=== PATIENT | female | born 1985 | race American Indian/Alaskan Native ===

== ENCOUNTER 2019-02-04 12:53 | Emergency (ER) | payer BC ==
--- NOTE | 2019-02-04 13:12 | Emergency Department Report ---
Blank Doc - Documentation Documentation: This is a 33-year-old female that presents with shortness of breathe and chest pain. Sat at 93-94% in triage. This initial assessment/diagnostic orders/clinical plan/treatment(s) is/are subject to change based on patient's health status, clinical progression and re-assessment by fellow clinical providers in the ED. Further treatment and workup at subsequent clinical providers discretion. Patient/guardians urged not to elope from the ED as their condition may be serious if not clinically assessed and managed. Initial orders include: 1- Patient sent to MAIN for further evaluation and treatment 2- Breathing treatment/steroids 3- Labs 4- EKG 5- CXR
[2019-02-04] MEDS ORDERED: ATROVENT IH ONE (13:13)
[2019-02-04] MEDS ORDERED: DECADRON IV ONE (13:13)
[2019-02-04] MEDS ORDERED: PROVENTIL IH ONE (13:13)
--- NOTE | 2019-02-04 13:44 | Emergency Department Report ---
ED General Adult HPI - General Chief complaint: Chest Pain Stated complaint: CHEST PAIN/LIGHT HEADED Time Seen by Provider: 02/04/19 13:10 Source: patient Mode of arrival: Ambulatory Limitations: No Limitations - History of Present Illness Initial comments: 33-year-old female with cough which is largely nonproductive for the last week. She complains of intermittent shortness of breath. She has obvious wheezing. She states that she has not been treated for asthma in the past. She denies risk factors for pulmonary embolism such as recent travel. He said no leg pain or swelling. She's had some occasional chest discomfort which is associated with her wheezing and transient in nature. She did not relate any pleuritic pain to me. She denies hemoptysis or even any productive sputum. She denies fever or chills. -: week(s) Location: chest Radiation: non-radiation Quality: aching Consistency: intermittent (transient and intermittent) Improves with: none Worsens with: none Associated Symptoms: cough, shortness of breath Treatments Prior to Arrival: none - Related Data Previous Rx's Medication Instructions Recorded Last Taken Type Amoxicillin/K Clav Tab [Augmentin 1 tab PO Q12HR #14 tab 09/22/18 Unknown Rx 875 mg] Ibuprofen [Motrin] 800 mg PO Q8HR #30 tablet 09/22/18 Unknown Rx Albuterol Sulfate [Ventolin HFA] 2 puff IH Q4H PRN #1 hfa.aer.ad 02/04/19 U nknown Rx Azithromycin [Zithromax] 250 mg PO DAILY #6 tablet 02/04/19 Unknown Rx predniSONE [Deltasone] 60 mg PO QDAY #15 tab 02/04/19 Unknown Rx Allergies Allergy/AdvReac Type Severity Reaction Status Date / Time No Known Allergies Allergy Verified 02/04/19 12:54 ED Review of Systems ROS: Stated complaint: CHEST PAIN/LIGHT HEADED Other details as noted in HPI Constitutional: denies: chills, fever Eyes: denies: eye pain, eye discharge, vision change ENT: denies: ear pain, throat pain Respiratory: cough, shortness of breath, wheezing Cardiovascular: chest pain. denies: palpitations Endocrine: no symptoms reported Gastrointestinal: denies: abdominal pain, nausea, diarrhea Genitourinary: denies: urgency, dysuria, discharge Musculoskeletal: as per HPI. denies: back pain, joint swelling, arthralgia, myalgia Skin: denies: rash, lesions Neurological: denies: headache, weakness, paresthesias Psychiatric: denies: anxiety, depression Hematological/Lymphatic: denies: easy bleeding, easy bruising ED Past Medical Hx - Past Medical History Previous Medical History?: No - Surgical History Past Surgical History?: No - Social History Smoking Status: Current Every Day Smoker Substance Use Type: None - Medications Home Medications: Home Medications Medication Instructions Recorded Confirmed Last Taken Type Amoxicillin/K Clav Tab [Augmentin 1 tab PO Q12HR #14 tab 09/22/18 Unknown Rx 875 mg] Ibuprofen [Motrin] 800 mg PO Q8HR #30 tablet 09/22/18 Unknown Rx Albuterol Sulfate [Ventolin HFA] 2 puff IH Q4H PRN #1 hfa.aer.ad 02/04/19 Unknown Rx Azithromycin [Zithromax] 250 mg PO DAILY #6 tablet 02/04/19 Unknown Rx predniSONE [Deltasone] 60 mg PO QDAY #15 tab 02/04/19 Unknown Rx ED Physical Exam - General Limitations: No Limitations General appearance: alert, in no apparent distress - Head Head exam: Present: atraumatic, normocephalic - Eye Eye exam: Present: normal appearance. Absent: scleral icterus - ENT ENT exam: Present: mucous membranes moist - Neck Neck exam: Present: normal inspection. Absent: tenderness, meningismus - Respiratory Respiratory exam: Present: wheezes. Absent: normal lung sounds bilaterally, respiratory distress - Cardiovascular Cardiovascular Exam: Present: regular rate, normal rhythm. Absent: systolic murmur, diastolic murmur, rubs, gallop - GI/Abdominal GI/Abdominal exam: Present: soft, normal bowel sounds. Absent: distended, tenderness, guarding, rebound, rigid - Extremities Exam Extremities exam: Present: normal inspection - Back Exam Back exam: Present: normal inspection - Neurological Exam Neurological exam: Present: alert, oriented X3, CN II-XII intact. Absent: motor sensory deficit - Psychiatric Psychiatric exam: Present: normal affect, normal mood - Skin Skin exam: Present: warm, dry, intact, normal color. Absent: rash ED Course Vital Signs 02/04/19 02/04/19 02/04/19 13:11 13:55 14:23 Temperature 97.9 F Pulse Rate 115 H Pulse Rate [ 97 H Anterior Bilateral Throughout] Respiratory 22 24 Rate Respiratory 20 Rate [Anterior Bilateral Throughout] Blood Pressure 119/61 O2 Sat by Pulse 95 Oximetry - Reevaluation(s) Reevaluation #1: Patient denies chest pain independent from her wheezing. She didn't experience any chest pain while here. I do not think she qualifies for CT imaging with the d-dimer measurement found. Her wheezing has improved and her symptoms have essentially resolved. She has minimal residual wheezing but does not desire another treatment. She states ready for discharge. 02/04/19 15:19 ED Medical Decision Making - Lab Data Result diagrams: 02/04/19 13:53 02/04/19 13:41 Laboratory Results - last 24 hr 02/04/19 02/04/19 02/04/19 13:41 13:41 13:53 WBC 5.8 RBC 4.54 Hgb 14.7 H Hct 42.8 MCV 94 MCH 32 MCHC 34 RDW 13.0 L Plt Count 251 Lymph % (Auto) 42.1 H Todd % (Auto) 6.1 Eos % (Auto) 2.7 Baso % (Auto) 0.8 Lymph # 2.5 Todd # 0.4 Eos # 0.2 Baso # 0.0 Seg Neutrophils % 48.3 Seg Neutrophils # 2.8 PT 13.5 INR 0.97 APTT 28.8 D-Dimer 247.77 H Sodium 140 Potassium 3.9 Chloride 104.9 Carbon Dioxide 25 Anion Gap 14 BUN 8 Creatinine 0.8 Estimated GFR > 60 BUN/Creatinine Ratio 10 Glucose 93 Calcium 9.0 Total Bilirubin 0.30 AST 15 ALT 17 Alkaline Phosphatase 60 Troponin T < 0.010 Total Protein 6.7 Albumin 3.8 L Albumin/Globulin Ratio 1.3 02/04/19 13:53 WBC RBC Hgb Hct MCV MCH MCHC RDW Plt Count Lymph % (Auto) Todd % (Auto) Eos % (Auto) Baso % (Auto) Lymph # Todd # Eos # Baso # Seg Neutrophils % Seg Neutrophils # PT INR APTT D-Dimer 245.44 H Sodium Potassium Chloride Carbon Dioxide Anion Gap BUN Creatinine Estimated GFR BUN/Creatinine Ratio Glucose Calcium Total Bilirubin AST ALT Alkaline Phosphatase Troponin T Total Protein Albumin Albumin/Globulin Ratio - EKG Data -: EKG Interpreted by Mo EKG shows normal: sinus rhythm, axis, intervals, QRS complexes, ST-T waves Rate: tachycardia - EKG Data Interpretation: nonspecific ST-T wave magdalene - Radiology Data Radiology results: report reviewed Chest x-ray no acute process Critical care attestation.: If time is entered above; I have spent that time in minutes in the direct care of this critically ill patient, excluding procedure time. ED Disposition Clinical Impression: Reactive airways dysfunction syndrome Acute bronchitis Qualifiers: Bronchitis organism: unspecified organism Qualified Code(s): J20.9 - Acute bronchitis, unspecified Disposition: TO HOME OR SELFCARE Is pt being admited?: No Does the pt Need Aspirin: No Condition: Stable Instructions: Bronchospasm (ED), Acute Bronchitis (ED) Additional Instructions: Return to the emergency department for any acute change or worsening symptoms. Follow-up with primary care provider. Rx has directed. Prescriptions: predniSONE [Deltasone] 60 mg PO QDAY #15 tab Albuterol Sulfate [Ventolin HFA] 2 puff IH Q4H PRN #1 hfa.aer.ad PRN Reason: Shortness Of Breath Azithromycin [Zithromax] 250 mg PO DAILY #6 tablet Referrals: SANYA MORALES MD [Primary Care Provider] - 2-3 Days Time of Disposition: 15:21
[2019-02-04] MEDS ORDERED: MAGNESIUM SULFATE 2GM/50ML 2 GM/50 ML BAG IV ONE (13:49)
[2019-02-04] MEDS ORDERED: NACL 0.9% 1000 ML 1,000 ML IV ONE (13:50)
[2019-02-04 14:02] LABS: Basophils % (Auto) 0.8 % (0.0-1.8); Eosinophils # (Auto) 0.2 K/mm3 (0.0-0.4); Eosinophils % (Auto) 2.7 % (0.0-4.3); Hematocrit 42.8 % (30.3-42.9); Hemoglobin 14.7 gm/dl (10.1-14.3); Lymphocytes # (Auto) 2.5 K/mm3 (1.2-5.4); Lymphocytes % (Auto) 42.1 % (13.4-35.0); Mean Corpuscular HGB Conc 34 % (30-34); Mean Corpuscular Volume 94 fl (79-97); Monocytes # (Auto) 0.4 K/mm3 (0.0-0.8); Monocytes % (Auto) 6.1 % (0.0-7.3); Platelet Count 251 K/mm3 (140-440); Red Blood Count 4.54 M/mm3 (3.65-5.03)
[2019-02-04 14:04] LABS: INR 0.97 (0.87-1.13)
[2019-02-04 14:05] LABS: Partial Thromboplastin Time 28.8 Sec. (24.2-36.6)
[2019-02-04 14:10] LABS: Alanine Aminotransferase 17 units/L (7-56); Albumin 3.8 g/dL (3.9-5); BUN/Creatinine Ratio 10; Blood Urea Nitrogen 8 mg/dL (7-17); Hemolysis Index 14
--- NOTE | 2019-02-04 14:17 | XRay Report ---
EXAM: XR CHEST 1V AP HISTORY: JUANCARLOS TECHNIQUE: PA and lateral chest x-ray dated 02/04/2019 at 1:50 PM. COMPARISON: None available. FINDINGS: The heart size and mediastinum are within normal limits. The lung lincoln and costophrenic angles are clear. There is no acute parenchymal infiltrate, pleural effusion, or pneumothorax seen. The visua lized bony structures are within normal limits. IMPRESSION: 1. No evidence for acute cardiopulmonary disease seen. This document is electronically signed by Kathie Connell MD., February 04 2019 02:15:18 PM ET
[2019-02-04] MEDS ORDERED: DUONEB *Not for PRN Use IH ONE (15:35)
[2019-02-04 16:46] VITALS: BP 114/56
== END 2019-02-04 16:44 | disposition home or self-care (01) ==
LOC: ED 12:53
DX: J20.9 Acute bronchitis, unspecified (principal); J68.3 Other acute and subacute respiratory conditions due to chemicals, gases, fumes and vapors; F17.200 Nicotine dependence, unspecified, uncomplicated
CPT/HCPCS: 36415; 71045; 80053; 84484; 85025; 85379; 85610; 85730; 93005; 93010; 94644; 96365; 96366; 96375; 99284; J1100; J3475; J7030

== ENCOUNTER 2019-02-04 23:27 | Inpatient (IN) | payer BC ==
[2019-02-04] MEDS ORDERED: LASIX IV ONE (23:30)
[2019-02-04] MEDS ORDERED: SOLU-Medrol IV ONE (23:30)
[2019-02-04] MEDS ORDERED: LASIX ONE (23:31)
[2019-02-04] MEDS ORDERED: SOLU-Medrol ONE (23:31)
[2019-02-04] MEDS ORDERED: ATROVENT IH ONE (23:32)
[2019-02-04] MEDS ORDERED: PROVENTIL IH ONE (23:32)
--- NOTE | 2019-02-04 23:59 | Emergency Department Report ---
HPI - General Chief Complaint: Dyspnea/Respdistress Time Seen by Provider: 02/04/19 23:40 - HPI HPI: 33 -[place] female presents to the ED with shortness of breath, wheezing, that started 1 hour prior to arrival. Patient rates symptoms as severe in severity. Patient was seen earlier in the ED and was diagnosed with bronchitis, she states she was walking in to [facility] to get her prescriptions and suddenly felt out of breath, very fatigued, chest discomfort, and like she was going to pass out. She drove herself to ED, parked in front of the ambulance entrance, and proceeded to the ED where she was met by nurses, and promptly placed in to a room. She appeared to be in respiratory distress, heart rate in the 140s, sats in the low 90s, and the wheezing in all lobes. Respiratory was called, patient was placed in the DuoNeb 10 mg albuterol and 1 mg Atrovent, she was given Solu-Medrol 125 IV, and placed on 2 L of oxygen. ED Past Medical Hx - Social History Smoking Status: Current Every Day Smoker Substance Use Type: None - Medications Home Medications: Home Medications Medication Instructions Recorded Confirmed Last Taken Type Amoxicillin/K Clav Tab [Augmentin 1 tab PO Q12HR #14 tab 09/22/18 02/05/19 Unknown Rx 875 mg] Ibuprofen [Motrin] 800 mg PO Q8HR #30 tablet 09/22/18 02/05/19 Unknown Rx Albuterol Sulfate [Ventolin HFA] 2 puff IH Q4H PRN #1 hfa.aer.ad 02/04/19 02/05/19 Unknown Rx Azithromycin [Zithromax] 250 mg PO DAILY #6 tablet 02/04/19 02/05/19 Unknown Rx predniSONE [Deltasone] 60 mg PO QDAY #15 tab 02/04/19 02/05/19 Unknown Rx ED Review of Systems ROS: Stated complaint: JUANCARLOS Other details as noted in HPI ED Medical Decision Making - Lab Data Result diagrams: 02/05/19 00:48 02/05/19 00:48 - Medical Decision Making 33-year-old female presents to the ED with respiratory distress Treated with DuoNeb with 10 mg of albuterol and 1 mg of Atrovent, 2 mg IV of magnesium, CT angiogram of the chest showed right lower lobe PE, patient treated with Lovenox 100 mg subcutaneous 1. Patient To be admitted to ICU. - Differential Diagnosis ACS, PE, pneumonia, bronchitis Critical Care Time: Yes (one hour) Critical care time in (mins) excluding proc time.: 60 Critical care attestation.: If time is entered above; I have spent that time in minutes in the direct care of this critically ill patient, excluding procedure time. ED Disposition Clinical Impression: Pulmonary embolism Qualifiers: Pulmonary embolism type: other Chronicity: acute Acute cor pulmonale presence: without acute cor pulmonale Qualified Code(s): I26.99 - Other pulmonary embolism without acute cor pulmonale Disposition: 09 OP ADMIT IP TO THIS HOSP Is pt being admited?: Yes Does the pt Need Aspirin: Yes Condition: Critical
[2019-02-05] MEDS ORDERED: MAGNESIUM SULFATE 2GM/50ML 2 GM/50 ML BAG IV ONE ×2 (00:22→00:26)
[2019-02-05] MEDS ORDERED: ZOFRAN IV ONE (00:23)
[2019-02-05] MEDS ORDERED: MORPHINE IV ONE ×2 (00:23→02:29)
[2019-02-05] MEDS ORDERED: PROVENTIL IH ONE (01:00)
[2019-02-05] MEDS ORDERED: ATROVENT IH ONE (01:00)
[2019-02-05 01:14] LABS: BUN/Creatinine Ratio 11; Blood Urea Nitrogen 8 mg/dL (7-17); Calcium 8.9 mg/dL (8.4-10.2); Hemolysis Index 13
[2019-02-05 01:15] LABS: Basophils % (Auto) 0.2 % (0.0-1.8); Hemoglobin 14.8 gm/dl (10.1-14.3); Lymphocytes # (Auto) 1.1 K/mm3 (1.2-5.4); Lymphocytes % (Auto) 9.9 % (13.4-35.0); Mean Corpuscular HGB Conc 34 % (30-34); Mean Corpuscular Volume 95 fl (79-97); Monocytes # (Auto) 0.2 K/mm3 (0.0-0.8); Monocytes % (Auto) 1.8 % (0.0-7.3); Platelet Count 280 K/mm3 (140-440); Red Blood Count 4.54 M/mm3 (3.65-5.03); Red Cell Distribution Width 13.5 % (13.2-15.2)
[2019-02-05 02:38] LABS: Amorphous Crystals,Urine Few; Bacteria,Urine 1+ /HPF (Negative); Bilirubin,Urine NEG (Negative); Blood,Urine MOD (Negative); Color,Urine Colorless (Yellow); HCG Qualitative,Urine Negative (Negative); Mucus,Urine FEW /HPF; Protein,Urine <15 mg/dL mg/dL (Negative); Urobilinogen,Urine < 2.0 mg/dL (<2.0)
--- NOTE | 2019-02-05 04:15 | Cat Scan Report ---
PROCEDURE: CT ANGIO CHEST TECHNIQUE: HISTORY: chest pain,elev ddimer,sob FINDINGS: Contrast-enhanced CT angiography of the chest was performed following the intravenous admin istration of iodinated contrast. Sagittal and coronal MIP three-dimensional reformatted images were g enerated. These images demonstrate a pulmonary embolism in a medial branch of the right lower lobe pulmonary ar mayra, axial image 68, sagittal image 69, coronal image 68. No central embolism is seen. There is no a ortic dissection. There is no consolidative pulmonary infiltrate. There is no pleural or pericardial effusion. In the upper abdomen the adrenal glands are within normal limits. The visualized portion of the liver and spleen are unremarkable. IMPRESSION: Right lower lobe pulmonary embolism This document is electronically signed by Isidro Hearn MD., February 05 2019 04:12:48 AM ET
[2019-02-05] MEDS ORDERED: LOVENOX SUB-Q ONE ×2 (04:19→06:21)
[2019-02-05] MEDS ORDERED: ZOFRAN IV PRN (04:52)
[2019-02-05] MEDS ORDERED: TYLENOL PO PRN (04:52)
[2019-02-05] MEDS ORDERED: SODIUM CHLORIDE FLUSH SYRINGE 10 ML IV PRN (04:52)
--- NOTE | 2019-02-05 04:57 | History and Physical Report ---
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 She was seen out in the emergency room yesterday and was diagnosed with acute bronchitis. 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 She comes emergency room her evaluation, she was found to be in respiratory distress, wheezing, she will space on BiPAP, given steroids. She denies OCP use, recent surgery, she is usually sedentary for At least 2 hours at a time when she is driving the truck Review of systems Constitutional: no weight loss, chills, fever Ears, eyes, nose, mouth and throat: no nasal congestion, no nasal discharge, no sinus pressure, no vision change, no red eye. Neck: No neck pain or rigidity. Cardiovascular: no palpitations, chest pain Respiratory: + cough, shortness of breath Gastrointestinal: no hematochezia, abdominal pain Genitourinary : no frequency , no hematuria Musculoskeletal: no joint swelling or muscle ache Integumentary: no rash, no pruritis Neurological: no parathesias, no focal weakness Endocrine: no cold or heat intolerance, no polyuria or polydipsia Hematologic/Lymphatic: no easy bruising, no easy bleeding, no gland swelling Allergic/Immunologic: no urticaria, no angioedema. PAST MEDICAL HISTORY: None PAST SURGICAL HISTORY: Hernia repair SOCIAL HISTORY: Denies alcohol, drugs, smokes half pack a day FAMILY HISTORY: Hypertension Medications and Allergies Allergies Allergy/AdvReac Type Severity Reaction Status Date / Time No Known Allergies Allergy Verified 02/04/19 12:54 Home Medications Medication Instructions Recorded Confirmed Last Taken Type Amoxicillin/K Clav Tab [Augmentin 1 tab PO Q12HR #14 tab 09/22/18 02/05/19 Unknown Rx 875 mg] Ibuprofen [Motrin] 800 mg PO Q8HR #30 tablet 09/22/18 02/05/19 Unknown Rx Albuterol Sulfate [Ventolin HFA] 2 puff IH Q4H PRN #1 hfa.aer.ad 02/04/19 02/05/19 Unknown Rx Azithromycin [Zithromax] 250 mg PO DAILY #6 tablet 02/04/19 02/05/19 Unknown Rx predniSONE [Deltasone] 60 mg PO QDAY #15 tab 02/04/19 02/05/19 Unknown Rx Exam - Physical Exam Narrative exam: General Apperance: The patient lying in bed, breathing comfortable on BIPAP HEENT: Normocephalic, atraumatic. Pupils equally round and reactive to light, EOMI, no sclericterus or JVD or thyromegaly or nodule. , no carotid bruit, mucous membranes moist, no exudate or erythema Heart: S1-S2, regular is rhythm Lungs: Clear to auscultation bilaterally, breathing comfortable Abdomen: Positive bowel sounds, soft, nontender, nondistended, no organomegaly Extremities: No edema cyanosis clubbing Skin: no rash, nodule, warm and dry Neuro: cranial nerves 2-12 intact, speech is fluent, motor/sensory intact - Constitutional Vitals: Temp Pulse Resp BP Pulse Ox 114 H 22 113/54 100 02/05/19 02:25 02/05/19 02:25 02/05/19 02:00 02/05/19 02:12 Results - Labs CBC & Chem 7: 02/05/19 00:48 02/05/19 00:48 Labs: Abnormal lab results 02/05/19 02/05/19 Range/Units 00:48 00:48 Hgb 14.8 H (10.1-14.3) gm/dl Hct 43.0 H (30.3-42.9) % MCH 33 H (28-32) pg Lymph % (Auto) 9.9 L (13.4-35.0) % Lymph # 1.1 L (1.2-5.4) K/mm3 Seg Neutrophils % 88.1 H (40.0-70.0) % Seg Neutrophils # 9.5 H (1.8-7.7) K/mm3 Sodium 136 L (137-145) mmol/L Carbon Dioxide 18 L D (22-30) mmol/L Glucose 169 H (65-100) mg/dL - Imaging and Cardiology CT scan - chest: report reviewed Assessment and Plan Assessment Acute pulmonary emboli Acute bronchitis Plan Admit to medicine Start Lovenox, check Doppler lower extremity start Steroids, nebulized treatments DVT prophylaxis
[2019-02-05 04:58] LABS: INR 0.92 (0.87-1.13); Partial Thromboplastin Time 26.7 Sec. (24.2-36.6)
[2019-02-05] MEDS ORDERED: SOLU-Medrol IV SCH (06:00)
[2019-02-05] MEDS: LOVENOX SUB-Q SCH ×2 (06:15→18:42)
[2019-02-05] MEDS ORDERED: SOLU-Medrol ONE (06:22)
[2019-02-05] MEDS: MORPHINE IV PRN ×2 (09:19→18:42)
[2019-02-05] MEDS: SODIUM CHLORIDE FLUSH SYRINGE 10 ML IV SCH ×2 (09:20→22:08)
[2019-02-05] MEDS: ATROVENT IH SCH ×4 (09:51→21:55)
--- NOTE | 2019-02-05 10:35 | Consultation ---
History of Present Illness Consult date: 02/05/19 Requesting physician: EN SOSA Reason for consult: other (Acute Hypoxemic Respiratory Failure) History of present illness: PCCM CONSULT NOTE (Full note dictated # ) Please see dictated notes for full details Medications and Allergies Allergies Allergy/AdvReac Type Severity Reaction Status Date / Time No Known Allergies Allergy Verified 02/04/19 12:54 Home Medications Medication Instructions Recorded Confirmed Last Taken Type Amoxicillin/K Clav Tab [Augmentin 1 tab PO Q12HR #14 tab 09/22/18 02/05/19 Unknown Rx 875 mg] Ibuprofen [Motrin] 800 mg PO Q8HR #30 tablet 09/22/18 02/05/19 Unknown Rx Albuterol Sulfate [Ventolin HFA] 2 puff IH Q4H PRN #1 hfa.aer.ad 02/04/19 02/05/19 Unknown Rx Azithromycin [Zithromax] 250 mg PO DAILY #6 tablet 02/04/19 02/05/19 Unknown Rx predniSONE [Deltasone] 60 mg PO QDAY #15 tab 02/04/19 02/05/19 Unknown Rx Active Meds: Active Medications Acetaminophen (Tylenol) 650 mg PO Q4H PRN PRN Reason: Pain MILD(1-3)/Fever >100.5/ELIAS Enoxaparin Sodium (Lovenox) 90 mg 1 mg/kg (90 mg) SUB-Q Q12H [facility] Last Admin: 02/05/19 06:15 Dose: 90 mg Documented by: Ipratropium [place] (Atrovent) 0.5 mg IH Q4HRT [facility] Last Admin: 02/05/19 09:51 Dose: 0.5 mg Documented by: Methylprednisolone Sodium Succinate (Solu-Medrol) 80 mg IV Q6HR [facility] Morphine Sulfate (Morphine) 2 mg IV Q4H PRN PRN Reason: Pain, Moderate (4-6) Last Admin: 02/05/19 09:19 Dose: 2 mg Documented by: Ondansetron HCl (Zofran) 4 mg IV Q8H PRN PRN Reason: Nausea And Vomiting Sodium Chloride (Sodium Chloride Flush Syringe 10 Ml) 10 ml IV BID [facility] Last Admin: 02/05/19 09:20 Dose: 10 ml Documented by: Sodium Chloride (Sodium Chloride Flush Syringe 10 Ml) 10 ml IV PRN PRN PRN Reason: LINE FLUSH Physical Examination Vital signs: Vital Signs Pulse Pulse Ox 156 H 96 02/04/19 23:28 02/04/19 23:28 Results - Laboratory Findings CBC and BMP: 02/05/19 00:48 02/05/19 00:48 PT/INR, D-dimer PT 12.9 Sec. (12.2-14.9) 02/05/19 04:31 INR 0.92 (0.87-1.13) 02/05/19 04:31 Abnormal lab findings: Abnormal Labs 02/05/19 02/05/19 00:48 00:48 Hgb 14.8 H Hct 43.0 H MCH 33 H Lymph % (Auto) 9.9 L Lymph # 1.1 L Seg Neutrophils % 88.1 H Seg Neutrophils # 9.5 H Sodium 136 L Carbon Dioxide 18 L D Glucose 169 H
[2019-02-05] MEDS: SOLU-Medrol IV SCH ×3 (12:19→23:58)
--- NOTE | 2019-02-05 12:25 | Vascular Lab Report ---
PROCEDURE: VL VENOUS DUPLEX LE BILAT TECHNIQUE: Duplex Doppler imaging of the veins of the bilateral lower extremities was performed. HISTORY: DVT COMPARISONS: None. FINDINGS: The veins of the right lower extremity are patent, compressible, demonstrate normal waveforms and aug mentation. The veins of the left lower extremity are patent, compressible, demonstrate normal waveforms and augm entation. IMPRESSION: No evidence of deep venous fibrosis of the bilateral lower extremities. This document is electronically signed by Abby Bynum MD., February 05 2019 12:23:13 PM ET
--- NOTE | 2019-02-05 18:34 | Consultation ---
History of Present Illness Consult date: 02/05/19 Reason for consult: dyspnea, cough, pulmonary embolism History of present illness: PULMONARY AND CRITICAL CARE CONSULTATION DR. SOSA THANK YOU FOR ASKING US TO PARTICIPATE IN THE CARE OF THIS PATIENT. 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 She was seen out in the emergency room yesterday and was diagnosed with acute bronchitis. She went to [facility] to knot picker cloth her prednisone, she became increasing more short of breath, feel as if she was, pass out. She comes emergency room her evaluation, she was found to be in respiratory distress, wheezing, she is placed on BiPAP and given steroids. She denies OCP use, recent surgery, she is usually sedentary for At least 2 hours at a time when she is driving the truck.Patient denies any other medical problems except migraine headache. She smokes Half a pack a day x 10 years. Counselled to stop smoking.Denies alcohol or drug abuse. No known drug allergies. Not . No children. Do not use control pills. Patient has Angio CT of chest reported pulmonary emboli right Lower lobe. Patient started on S/C Lovenox with therapeutic dose. Patient resting on 2 litres O2. O2 saturation 98%. Past History Past Medical History: other (Migrain hedaches.) Medications and Allergies Allergies Allergy/AdvReac Type Severity Reaction Status Date / Time No Known Allergies Allergy Verified 02/04/19 12:54 Home Medications Medication Instructions Recorded Confirmed Last Taken Type Amoxicillin/K Clav Tab [Augmentin 1 tab PO Q12HR #14 tab 09/22/18 02/05/19 Unknown Rx 875 mg] Ibuprofen [Motrin] 800 mg PO Q8HR #30 tablet 09/22/18 02/05/19 Unknown Rx Albuterol Sulfate [Ventolin HFA] 2 puff IH Q4H PRN #1 hfa.[email or web address] 02/04/19 02/05/19 Unknown Rx Azithromycin [Zithromax] 250 mg PO DAILY #6 tablet 02/04/19 02/05/19 Unknown Rx predniSONE [Deltasone] 60 mg PO QDAY #15 tab 02/04/19 02/05/19 Unknown Rx Active Meds: Active Medications Acetaminophen (Tylenol) 650 mg PO Q4H PRN PRN Reason: Pain MILD(1-3)/Fever >100.5/ELIAS Last Admin: 02/05/19 12:20 Dose: 650 mg Documented by: Enoxaparin Sodium (Lovenox) 90 mg 1 mg/kg (90 mg) SUB-Q Q12H [facility] Last Admin: 02/05/19 06:15 Dose: 90 mg Documented by: Ipratropium [place] (Atrovent) 0.5 mg IH Q4HRT [facility] Last Admin: 02/05/19 16:39 Dose: 0.5 mg Documented by: Methylprednisolone Sodium Succinate (Solu-Medrol) 80 mg IV Q6HR [facility] Last Admin: 02/05/19 12:19 Dose: 80 mg Documented by: Morphine Sulfate (Morphine) 2 mg IV Q4H PRN PRN Reason: Pain, Moderate (4-6) Last Admin: 02/05/19 09:19 Dose: 2 mg Documented by: Ondansetron HCl (Zofran) 4 mg IV Q8H PRN PRN Reason: Nausea And Vomiting Sodium Chloride (Sodium Chloride Flush Syringe 10 Ml) 10 ml IV BID [facility] Last Admin: 02/05/19 09:20 Dose: 10 ml Documented by: Sodium Chloride (Sodium Chloride Flush Syringe 10 Ml) 10 ml IV PRN PRN PRN Reason: LINE FLUSH Review of Systems All systems: negative Physical Examination Vital signs: Vital Signs Pulse Pulse Ox 156 H 96 02/04/19 23:28 02/04/19 23:28 General appearance: no acute distress, asleep Eyes: non-icteric ENT: oropharynx moist Neck: supple, no JVD Ascultation: Bilateral: diminished breath sounds Cardiovascular: regular rate and rhythm Gastrointestinal: normoactive bowel sounds, soft, non-tender Integumentary: normal Extremities: no cyanosis, no edema Musculoskeletal: no deformities non-focal exam, pupils equal and round, CN II-XII normal depressed Results - Laboratory Findings CBC and BMP: 02/05/19 00:48 02/05/19 00:48 PT/INR, D-dimer PT 12.9 Sec. 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 She was seen out in the emergency room yesterday and was diagnosed with acute bronchitis. She went to [facility] to knot picker cloth her prednisone, she became increasing mo re short of breath, feel as if she was, pass out. She comes emergency room her evaluation, she was found to be in respiratory distress, wheezing, she is placed on BiPAP and given steroids. She denies OCP use, recent surgery, she is usually sedentary for At least 2 hours at a time when she is driving the truck.Patient denies any other medical problems except migraine headache. She smokes Half a pack a day x 10 years. Counselled to stop smoking.Denies alcohol or drug abuse. No known drug allergies. Not . No children. Do not use control pills. Patient has Angio CT of chest reported pulmonary emboli right Lower lobe. Patient started on S/C Lovenox with therapeutic dose. Patient resting on 2 litres O2. O2 saturation 98%. - Patient Problems (1) Pulmonary embolism Current Visit: Yes Status: Acute Qualifiers: Pulmonary embolism type: other Chronicity: acute Acute cor pulmonale presence: without acute cor pulmonale Qualified Code(s): I26.99 - Other pulmonary embolism without acute cor pulmonale Plan to address problem: Patient started on S/C Lovenox. (2) Reactive airways dysfunction syndrome Current Visit: No Status: Acute Plan to address problem: Atrovent aerosol treatments q 6 hours. Continue I/V solumedrol.
--- NOTE | 2019-02-05 19:09 | Event Note ---
Date: 02/05/19 Patient seen and examined, improving clinically, continue current management as outlined.
[2019-02-06] MEDS: ATROVENT IH SCH ×6 (00:44→21:16)
[2019-02-06] MEDS: LOVENOX SUB-Q SCH ×2 (06:04→17:07)
[2019-02-06] MEDS: SOLU-Medrol IV SCH ×3 (06:05→17:06)
[2019-02-06] MEDS: MORPHINE IV PRN (06:37)
[2019-02-06 07:03] LABS: Basophils % (Auto) 0.1 % (0.0-1.8); Hematocrit 43.1 % (30.3-42.9); Hemoglobin 14.2 gm/dl (10.1-14.3); Lymphocytes # (Auto) 1.6 K/mm3 (1.2-5.4); Lymphocytes % (Auto) 9.9 % (13.4-35.0); Mean Corpuscular HGB Conc 33 % (30-34); Mean Corpuscular Volume 95 fl (79-97); Monocytes # (Auto) 0.4 K/mm3 (0.0-0.8); Monocytes % (Auto) 2.7 % (0.0-7.3); Platelet Count 263 K/mm3 (140-440); Red Blood Count 4.55 M/mm3 (3.65-5.03); Red Cell Distribution Width 13.6 % (13.2-15.2)
[2019-02-06 07:25] LABS: BUN/Creatinine Ratio 20; Blood Urea Nitrogen 14 mg/dL (7-17); Calcium 8.8 mg/dL (8.4-10.2); Hemolysis Index 6
--- NOTE | 2019-02-06 08:25 | Progress Note ---
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 She was seen out in the emergency room yesterday and was diagnosed with acute bronchitis. She went to [facility] to brain picker her prednisone, she became increasing more short of breath, feel as if she was, pass out. She comes emergency room her evaluation, she was found to be in respiratory distress, wheezing, she will space on BiPAP, given steroids. 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 CT CHEST IMPRESSION: Right lower lobe pulmonary embolism Doppler US. IMPRESSION: No evidence of deep venous fibrosis of the bilateral lower extremities. Acute pulmonary emboli Acute Respiratory failure secondary to Pulmonary embolisim Reactive airways dysfunction syndrome Acute bronchitis Tobacco use disorder Leukocytosis-likely secondary to steroids Plan Admit to medicine Start Lovenox, Pulmonary input noted started Steroids, nebulizer treatments Based on clinical improvement and oxygen demand will switch to oral NOAC and plan for discharge Patient will need outpatient follow up with Pulmonary, Primary doctor and Energy Project Engineer DVT prophylaxis History Interval history: Patient seen and examined, still with some shortness of breath and exertion dyspnea. Hospitalist Physical - Physical exam Narrative exam: General Apperance: The patient lying in bed, no acute distress, no increase in WOB HEENT: Normocephalic, atraumatic. Pupils equally round and reactive to light, EOMI, no sclericterus or JVD or thyromegaly or nodule. , no carotid bruit, mucous membranes moist, no exudate or erythema Heart: S1-S2, regular is rhythm Lungs: Diminshed bilaterally, breathing comfortable Abdomen: Positive bowel sounds, soft, nontender, nondistended, no organomegaly Extremities: No edema cyanosis clubbing Skin: no rash, nodule, warm and dry Neuro: cranial nerves 2-12 intact, speech is fluent, motor/sensory intact - Constitutional Vitals: Temp Pulse Resp BP Pulse Ox 98.7 F 92 H 18 102/48 89 02/06/19 07:41 02/06/19 07:41 02/06/19 07:41 02/06/19 07:41 02/06/19 07:41 Results - Labs CBC & Chem 7: 02/06/19 06:05 02/06/19 06:05 Labs: Laboratory Last Values WBC 16.2 K/mm3 (4.5-11.0) H 02/06/19 06:05 RBC 4.55 M/mm3 (3.65-5.03) 02/06/19 06:05 Hgb 14.2 gm/dl (10.1-14.3) 02/06/19 06:05 Hct 43.1 % (30.3-42.9) H 02/06/19 06:05 MCV 95 fl (79-97) 02/06/19 06:05 MCH 31 pg (28-32) 02/06/19 06:05 MCHC 33 % (30-34) 02/06/19 06:05 RDW 13.6 % (13.2-15.2) 02/06/19 06:05 Plt Count 263 K/mm3 (140-440) 02/06/19 06:05 Lymph % (Auto) 9.9 % (13.4-35.0) L 02/06/19 06:05 Boundary % (Auto) 2.7 % (0.0-7.3) 02/06/19 06:05 Eos % (Auto) 0.0 % (0.0-4.3) 02/06/19 06:05 Baso % (Auto) 0.1 % (0.0-1.8) 02/06/19 06:05 Lymph # 1.6 K/mm3 (1.2-5.4) 02/06/19 06:05 Boundary # 0.4 K/mm3 (0.0-0.8) 02/06/19 06:05 Eos # 0.0 K/mm3 (0.0-0.4) 02/06/19 06:05 Baso # 0.0 K/mm3 (0.0-0.1) 02/06/19 06:05 Seg Neutrophils % 87.3 % (40.0-70.0) H 02/06/19 06:05 Seg Neutrophils # 14.1 K/mm3 (1.8-7.7) H 02/06/19 06:05 PT 12.9 Sec. (12.2-14.9) 02/05/19 04:31 INR 0.92 (0.87-1.13) 02/05/19 04:31 APTT 26.7 Sec. (24.2-36.6) 02/05/19 04:31 Sodium 135 mmol/L (137-145) L 02/06/19 06:05 Potassium 4.6 mmol/L (3.6-5.0) D 02/06/19 06:05 Chloride 106.8 mmol/L (98-107) 02/06/19 06:05 Carbon Dioxide 24 mmol/L (22-30) 02/06/19 06:05 Anion Gap 9 mmol/L 02/06/19 06:05 BUN 14 mg/dL (7-17) 02/06/19 06:05 Creatinine 0.7 mg/dL (0.7-1.2) 02/06/19 06:05 Estimated GFR > 60 ml/min 02/06/19 06:05 BUN/Creatinine Ratio 20 % 02/06/19 06:05 Glucose 112 mg/dL (65-100) H 02/06/19 06:05 Calcium 8.8 mg/dL (8.4-10.2) 02/06/19 06:05 Troponin T < 0.010 ng/mL (0.00-0.029) 02/04/19 23:51 NT-Pro-B Natriuret Pep 52.78 pg/mL (0-450) 02/04/19 23:51 Urine Color Colorless (Yellow) 02/04/19 23:54 Urine Turbidity Clear (Clear) 02/04/19 23:54 Urine pH 6.0 (5.0-7.0) 02/04/19 23:54 Ur Specific [place] 1.004 (1.003-1.030) 02/04/19 23:54 Urine Protein <15 mg/dl mg/dL (Negative) 02/04/19 23:54 Urine Glucose (UA) Neg mg/dL (Negative) 02/04/19 23:54 Urine Ketones Neg mg/dL (Negative) 02/04/19 23:54 Urine Blood Mod (Negative) 02/04/19 23:54 Urine Nitrite Neg (Negative) 02/04/19 23:54 Urine Bilirubin Neg (Negative) 02/04/19 23:54 Urine Urobilinogen < 2.0 mg/dL (<2.0) 02/04/19 23:54 Ur Leukocyte Esterase Neg (Negative) 02/04/19 23:54 Urine WBC (Auto) 1.0 /HPF (0.0-6.0) 02/04/19 23:54 Urine RBC (Auto) 3.0 /HPF (0.0-6.0) 02/04/19 23:54 U Epithel Cells (Auto) 2.0 /HPF (0-13.0) 02/04/19 23:54 Urine Bacteria (Auto) 1+ /HPF (Negative) 02/04/19 23:54 Amorphous Crystals Few 02/04/19 23:54 Urine Mucus Few /HPF 02/04/19 23:54 Urine HCG, Qual Negative (Negative) 02/04/19 23:54
[2019-02-06] MEDS: SODIUM CHLORIDE FLUSH SYRINGE 10 ML IV SCH ×2 (10:59→21:44)
--- NOTE | 2019-02-06 18:20 | Progress Note ---
Assessment and Plan Patient awake. Resting on 4 litres O2. O2 saturation 91%.No complaint of chest pain or shortness of breath. Patient afebrile and has slight cough. - Patient Problems (1) Pulmonary embolism Current Visit: Yes Status: Acute Qualifiers: Pulmonary embolism type: other Chronicity: acute Acute cor pulmonale presence: without acute cor pulmonale Qualified Code(s): I26.99 - Other pulmonary embolism without acute cor pulmonale Plan to address problem: Patient started on S/C Lovenox. (2) Reactive airways dysfunction syndrome Current Visit: No Status: Acute Plan to address problem: Atrovent aerosol treatments q 6 hours. Continue I/V solumedrol. Subjective Date of service: 02/06/19 Interval history: Patient awake. Resting on 4 litres O2. O2 saturation 91%.No complaint of chest pain or shortness of breath. Patient afebrile and has slight cough. Objective Vital Signs - 12hr 02/06/19 02/06/19 02/06/19 07:41 08:00 09:27 Temperature 98.7 F Pulse Rate 92 H Pulse Rate [ Anterior Bilateral Throughout] Pulse Rate [ 118 H 106 H Posterior Bilateral Throughout] Respiratory 18 Rate Respiratory Rate [Anterior Bilateral Throughout] Respiratory 18 18 Rate [Posterior Bilateral Throughout] Blood Pressure 102/48 O2 Sat by Pulse 89 Oximetry 02/06/19 02/06/19 02/06/19 09:30 10:00 10:19 Temperature Pulse Rate 93 H Pulse Rate [ Anterior Bilateral Throughout] Pulse Rate [ Posterior Bilateral Throughout] Respiratory Rate Respiratory Rate [Anterior Bilateral Throughout] Respiratory Rate [Posterior Bilateral Throughout] Blood Pressure O2 Sat by Pulse 95 98 Oximetry 02/06/19 02/06/19 02/06/19 11:52 13:38 13:44 Temperature 98.7 F Pulse Rate 86 Pulse Rate [ 103 H Anterior Bilateral Throughout] Pulse Rate [ 101 H Posterior Bilateral Throughout] Respiratory 18 Rate Respiratory 18 Rate [Anterior Bilateral Throughout] Respiratory 17 Rate [Posterior Bilateral Throughout] Blood Pressure 101/49 O2 Sat by Pulse 96 Oximetry 02/06/19 16:04 Temperature 98.1 F Pulse Rate 101 H Pulse Rate [ Anterior Bilateral Throughout] Pulse Rate [ Posterior Bilateral Throughout] Respiratory 18 Rate Respiratory Rate [Anterior Bilateral Throughout] Respiratory Rate [Posterior Bilateral Throughout] Blood Pressure 100/51 O2 Sat by Pulse 91 Oximetry Constitutional: no acute distress, alert Eyes: non-icteric ENT: oropharynx moist Neck: supple, no JVD Ascultation: Bilateral: diminished breath sounds Cardiovascular: regular rate and rhythm Gastrointestinal: normoactive bowel sounds, soft, non-tender Integumentary: normal Extremities: no cyanosis, no edema Neurologic: normal mental status, non-focal exam, pupils equal and round, CN II- XII normal Psychiatric: depressed CBC and BMP: 02/06/19 06:05 02/06/19 06:05 ABG, PT/INR, D-dimer: PT/INR, D-dimer PT 12.9 Sec. (12.2-14.9) 02/05/19 04:31 INR 0.92 (0.87-1.13) 02/05/19 04:31 Abnormal lab findings: Abnormal Labs 02/05/19 02/05/19 02/06/19 00:48 00:48 06:05 WBC 16.2 H Hgb 14.8 H Hct 43.0 H 43.1 H MCH 33 H Lymph % (Auto) 9.9 L 9.9 L Lymph # 1.1 L Seg Neutrophils % 88.1 H 87.3 H Seg Neutrophils # 9.5 H 14.1 H Sodium 136 L Carbon Dioxide 18 L D Glucose 169 H 02/06/19 06:05 WBC Hgb Hct MCH Lymph % (Auto) Lymph # Seg Neutrophils % Seg Neutrophils # Sodium 135 L Carbon Dioxide Glucose 112 H
[2019-02-07] MEDS: SOLU-Medrol IV SCH ×3 (00:28→12:43)
[2019-02-07] MEDS: ATROVENT IH SCH ×4 (00:29→13:27)
[2019-02-07] MEDS: MORPHINE IV PRN (00:37)
[2019-02-07] MEDS: LOVENOX SUB-Q SCH (05:47)
[2019-02-07] MEDS: SODIUM CHLORIDE FLUSH SYRINGE 10 ML IV SCH (09:47)
--- NOTE | 2019-02-07 10:38 | Progress Note ---
Assessment and Plan Patient awake. Resting on 4 litres O2. O2 saturation 92%.No complaint of chest pain or shortness of breath. Patient afebrile. - Patient Problems (1) Pulmonary embolism Status: Acute Qualifiers: Pulmonary embolism type: other Chronicity: acute Acute cor pulmonale presence: without acute cor pulmonale Qualified Code(s): I26.99 - Other pulmonary embolism without acute cor pulmonale Plan to address problem: Patient on S/C Lovenox. (2) Reactive airways dysfunction syndrome Status: Acute Plan to address problem: Atrovent aerosol treatments q 6 hours. Continue I/V solumedrol. Subjective Date of service: 02/07/19 Interval history: Patient awake. Resting on 4 litres O2. O2 saturation 92%.No complaint of chest pain or shortness of breath. Patient afebrile. Objective Vital Signs - 12hr 02/07/19 02/07/19 02/07/19 00:00 00:29 00:39 Temperature 98.1 F Pulse Rate 92 H Pulse Rate [ 79 86 Anterior Bilateral Throughout] Respiratory 14 Rate Respiratory 18 18 Rate [Anterior Bilateral Throughout] Blood Pressure Blood Pressure 107/62 [Right] O2 Sat by Pulse 94 Oximetry 02/07/19 02/07/19 02/07/19 04:45 04:55 05:05 Temperature 98.0 F Pulse Rate 72 Pulse Rate [ 79 81 Anterior Bilateral Throughout] Respiratory 16 Rate Respiratory 18 18 Rate [Anterior Bilateral Throughout] Blood Pressure 112/55 Blood Pressure [Right] O2 Sat by Pulse 93 Oximetry 02/07/19 02/07/19 02/07/19 05:59 08:27 08:37 Temperature Pulse Rate 70 Pulse Rate [ 77 82 Anterior Bilateral Throughout] Respiratory Rate Respiratory 20 20 Rate [Anterior Bilateral Throughout] Blood Pressure Blood Pressure [Right] O2 Sat by Pulse Oximetry 02/07/19 02/07/19 02/07/19 10:00 10:23 10:26 Temperature 98.3 F Pulse Rate 85 105 H Pulse Rate [ Anterior Bilateral Throughout] Respiratory 20 Rate Respiratory Rate [Anterior Bilateral Throughout] Blood Pressure 96/45 Blood Pressure [Right] O2 Sat by Pulse 94 92 Oximetry Constitutional: no acute distress, alert Eyes: non-icteric ENT: oropharynx moist Neck: supple, no JVD Ascultation: Bilateral: diminished breath sounds Cardiovascular: regular rate and rhythm Gastrointestinal: normoactive bowel sounds, soft, non-tender Integumentary: normal Extremities: no cyanosis, no edema Neurologic: normal mental status, non-focal exam, pupils equal and round, CN II- XII normal Psychiatric: depressed CBC and BMP: 02/06/19 06:05 02/06/19 06:05 ABG, PT/INR, D-dimer: PT/INR, D-dimer PT 12.9 Sec. (12.2-14.9) 02/05/19 04:31 INR 0.92 (0.87-1.13) 02/05/19 04:31 Abnormal lab findings: Abnormal Labs 02/05/19 02/05/19 02/06/19 00:48 00:48 06:05 WBC 16.2 H Hgb 14.8 H Hct 43.0 H 43.1 H MCH 33 H Lymph % (Auto) 9.9 L 9.9 L Lymph # 1.1 L Seg Neutrophils % 88.1 H 87.3 H Seg Neutrophils # 9.5 H 14.1 H Sodium 136 L Carbon Dioxide 18 L D Glucose 169 H 02/06/19 06:05 WBC Hgb Hct MCH Lymph % (Auto) Lymph # Seg Neutrophils % Seg Neutrophils # Sodium 135 L Carbon Dioxide Glucose 112 H
--- NOTE | 2019-02-07 11:16 | Discharge Summary ---
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 She was seen out in the emergency room yesterday and was diagnosed with acute bronchitis. She went to [facility] to turkey picker her prednisone, she became increasing more short of breath, feel as if she was, pass out. She comes emergency room her evaluation, she was found to be in respiratory distress, wheezing, she will space on BiPAP, given steroids. 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 she was started on treatment with loveonx, steroids and later transitioned to Eliquis. She was also treated for reactive airway disease with jalousie installer assistance and advised to follow up with the pulmonary team Side effect of medications was discussed in entirety and all questions answered. Tobacco cessation counselling was provided and she verbalized understanding. CT CHEST IMPRESSION: Right lower lobe pulmonary embolism Doppler US. IMPRESSION: No evidence of deep venous fibrosis of the bilateral lower extremities. Acute pulmonary emboli Acute Respiratory failure secondary to Pulmonary embolisim Reactive airways dysfunction syndrome Acute bronchitis Tobacco use disorder Leukocytosis-likely secondary to steroids Disposition: - TO HOME OR SELFCARE Time spent for discharge: 35 mins Core Measure Documentation - Palliative Care Palliative Care/ Comfort Measures: Not Applicable - Core Measures Any of the following diagnoses?: DVT/PE - VTE Discharge Requirements Deep Vein Thrombosis/Pulmonary Embolism Present on Admission: Yes Has pt received <5 days of overlap therapy or INR<2.0: No Anticoagulant overlap therapy prescribed at discharge: Yes Exam - Physical Exam Narrative exam: General Apperance: The patient lying in bed, no acute distress, no increase in WOB HEENT: Normocephalic, atraumatic. Pupils equally round and reactive to light, EOMI, no sclericterus or JVD or thyromegaly or nodule. , no carotid bruit, mucous membranes moist, no exudate or erythema Heart: S1-S2, regular is rhythm Lungs: Diminshed bilaterally, breathing comfortable Abdomen: Positive bowel sounds, soft, nontender, nondistended, no organomegaly Extremities: No edema cyanosis clubbing Skin: no rash, nodule, warm and dry Neuro: cranial nerves 2-12 intact, speech is fluent, motor/sensory intact - Constitutional Vitals: Temp Pulse Resp BP Pulse Ox 98.3 F 105 H 20 96/45 92 02/07/19 10:23 02/07/19 10:26 02/07/19 10:26 02/07/19 10:02/07/19 10:26 Plan Activity: advance as tolerated, fall precautions Diet: regular Special Instructions: record daily weights, record daily BP diary, smoking cessation Follow up with: PRIMARY CARE, [Primary Care Provider] - 3-5 Days MABLE PEREZ MD [Staff Physician] - 7 Days Forms: Work/School Release Form Prescriptions: Apixaban [Eliquis] 10 mg PO Q12HR #81 tablet Prednisone [predniSONE 10 mg (6-Day Pack, 21 Tabs)] 10 mg PO .TAPER #1 tab.ds.pk Albuterol Sulfate [Ventolin HFA] 2 puff IH Q4H PRN #1 hfa.aer.ad PRN Reason: Shortness Of Breath
[2019-02-07] MEDS ORDERED: ELIQUIS PO SCH (12:00)
[2019-02-07 13:36] VITALS: BP 104/58
== END 2019-02-07 14:16 | disposition home or self-care (01) | DRG 175 ==
LOC: ED 23:27 → IMCU 02-05 06:01 → CC1 02-05 07:06 → IMCU 02-05 08:47 → 4A 02-05 20:39
PROVIDERS: ADMIT Internal Medicine; ATTEND Internal Medicine
PROC: 5A09357 Assistance with Respiratory Ventilation, Less than 24 Consecutive Hours, Continuous Positive Airway Pressure (ICD-10-PCS; principal; 2019-02-05)
DX: I26.99 Other pulmonary embolism without acute cor pulmonale (principal); J96.00 Acute respiratory failure, unspecified whether with hypoxia or hypercapnia; J20.9 Acute bronchitis, unspecified; J68.3 Other acute and subacute respiratory conditions due to chemicals, gases, fumes and vapors; F17.200 Nicotine dependence, unspecified, uncomplicated; D72.829 Elevated white blood cell count, unspecified; Z79.899 Other long term (current) drug therapy; Z71.6 Tobacco abuse counseling; Z82.49 Family history of ischemic heart disease and other diseases of the circulatory system
CPT/HCPCS: 36415; 71275; 80048; 81001; 81025; 83880; 84484; 85025; 85610; 85730; 93005; 93010; 93970; 94640; 94644; 94760; 99406; G0378; J1650; J1940; J2270; J2405; J2930; J3475